=== PATIENT | male | born 2000 | race Caucasian/White ===

== ENCOUNTER 2021-05-17 21:11 | Emergency (ER) | payer BC, SELFPAY ==
[2021-05-17 21:15] VITALS: BP 138/73; PULSE 64; RESP 16; TEMP 36.7; O2SAT 100
--- NOTE | 2021-05-17 21:27 | NUR.NOTE ---
pt exam by ADILSON Mejia Note:
[2021-05-17] MEDS: cefTRIAXone 250 MG VIAL IM (21:40)
--- NOTE | 2021-05-17 21:40 | NUR.NOTE ---
Requisition for scrotal ultrasound faxed to to [facility] for 05/18/21. Patient given copy of requisition and instructed to call [phone] to make shelly. Pt wll follow up in emergency dept.Nursing Note:
--- NOTE | 2021-05-17 21:42 | W.ED.GENAD ---
Discharge Plan Disposition Patient Disposition: HOME Condition: Improving Discharge Details Clinical Impression: Epididymitis, left Primary Care Provider: Marcia,[facility] ED Provider: Jose A Hennessy Home Meds and New Rx's Prescriptions: New doxycycline hyclate 100 mg capsule 100 mg PO BID 10 Days Qty: 20 RF: 0 Discontinued Airborne Everyday Stress Away 1,000 mg-200 mg-360 mg Powder In Packet 1 packet PO DAILY RF: 0 Discharge Instructions Instructions: Epididymitis (ED) Additional Instructions: As we discussed, call tomorrow morning for an appointment time for your ultrasound. Return if you develop severe testicular pain, vomiting, or any other acute concerns. Take antibiotics as prescribed until finished. These will make you slightly sensitive to strong sun. Do not take your airborne at the same time as taking the doxycycline. May use Tylenol as needed for pain as well as scrotal elevation with tight underpants. Medical Decision Making 20-year-old male, otherwise healthy, presents with achy left testicle pain that is mild and of 1 hour duration. He had a new sexual partner last evening which she reports was normal intercourse and ejaculation. He describes the pain as 1 out of 10. His exam reveals bilateral descended and nontender testes with the exception of the left superoposteriorly testicle. Probable epididymitis. Informal bedside ultrasound was obtained which demonstrated blood flow to both testicles. GC and chlamydia obtained. I do not feel this is testicular torsion but do feel it is murray to have the patient return in the morning for a formal ultrasound. He is given ceftriaxone & I will start him on doxycycline. HPI General Mode of arrival: ambulatory. Date/Time Provider Initiated Documentation: 05/17/21 21:11. Limitations to Documentation: no limitations. Information obtained by: patient. History of Present Illness 20 year old M presents to the emergency department with the chief complaint of Mild left testicle pain, described as mild, Quality is described as dull, and is localized to the genitals and left. Patient reports no radiation. Patient started experiencing this minute(s) and it has been constant. No relieving factors improve symptom(s), No exacerbating factors reported . Patient notes denies fever/chills, loss of appetite and nausea/vomiting. Patient did receive the following treatments prior to arrival, none Related Data Home Medications Medication Instructions Recorded Confirmed doxycycline hyclate 100 mg PO BID 10 Days #20 cap 05/17/21 Previous Rx's Medication Instructions Recorded doxycycline hyclate 100 mg PO BID 10 Days #20 cap 05/17/21 Allergies Allergy/AdvReac Type Severity Reaction Status Date / Time No Known Allergies Allergy Unverified 05/17/21 21:19 General Stated Complaint: Vascular DUSTIN: 3 Review of Systems Narrative: Normal urination, ejaculation, erection. New sexual partner last night but use protection. Otherwise well. 6 systems reviewed and negative PFSH Social History Smoking risk assessment performed?: No Exam Narrative Exam Narrative: GEN: awake, alert, oriented 3. Pleasant, well groomed, interactive. HEAD: Normocephalic, atraumatic ENT: Mucous membranes moist, oropharynx unremarkable, External ear exam unremarkable EYES: PERRL, EOMI NECK: Full ROM, no DAISY, no menigismus CHEST/RESP: Nontender, clear to auscultation bilateral, no wheeze/rhonchi/rales CARDIOVASCULAR: RRR, no murmur, rub kamila. 2+ Rad pulse bilateral ABDOMEN: Soft, nontender, no mass. +Bowel sounds. Bilateral testes descended. Left testicle superoposterior tenderness. EXT: Full ROM, no edema, no rash Neuro: Grossly normal neurologic exam, conversant, interactive. Psych: Speech fluent, thoughts congruent, affect normal Course Vital Signs Vital signs: Vital Signs Temperature 36.7 C 05/17/21 21:15 Pulse 64 05/17/21 21:15 Respiratory Rate 16 05/17/21 21:15 Blood Pressure 138/73 05/17/21 21:15 Pulse Oximetry 100 05/17/21 21:15 Temperature 36.7 C 05/17/21 21:15 Temperature Source Temporal Artery Scan 05/17/21 21:15 Pulse 64 05/17/21 21:15 Respiratory Rate 16 05/17/21 21:15 Respiratory Effort 05/17/21 21:26 Blood Pressure 138/73 05/17/21 21:15 Blood Pressure Position Sitting 05/17/21 21:15 Pulse Oximetry 100 05/17/21 21:15 Oxygen Delivery Method Room Air 05/17/21 21:15 Oxygen Flow Rate 0 05/17/21 21:15 Pain Level 3 05/17/21 21:15
[2021-05-17] MEDS: Doxycycline Hyclate 100 MG, 2 CAPS/BTL PO (21:59)
[2021-05-20 07:22] LABS: Chlamydia Result Negative (Negative); GC Result Negative (Negative)
== END 2021-05-17 21:56 | disposition home or self-care (01) ==
PROVIDERS: Emergency Provider Emergency Medicine
DX: N45.1 Epididymitis (principal)
CPT/HCPCS: 87491; 87591; 99283; J0696

== ENCOUNTER 2021-05-18 10:49 | Emergency (ER) | payer BC, SELFPAY ==
[2021-05-18 11:13] VITALS: BP 116/58; PULSE 56; RESP 16; TEMP 36.6; O2SAT 99
--- NOTE | 2021-05-18 11:28 | ED.GENADUL_ITS ---
Discharge Plan Disposition Patient Disposition: HOME Condition: Stable Discharge Details Clinical Impression: Epididymitis, left Primary Care Provider: Marcia,Local ED Provider: Shine Meng Home Meds and New Rx's Prescriptions: Continued doxycycline hyclate 100 mg capsule 100 mg PO BID 10 Days Qty: 20 RF: 0 Discharge Instructions Instructions: Epididymitis (ED) Additional Instructions: Ultrasound is unremarkable. As we discussed continue your treatment from yesterday of the doxycycline. Wemt-kwa-gugitks Tylenol and/or Motrin as directed for discomfort. You may wear tighter fitting boxers or underwear for comfort. Please watch for new or worsening symptoms and return to the ER for any concerns. Otherwise follow-up with your primary care provider. Medical Decision Making 20-year-old male presents for ultrasound results. Seen in the ER last night, treated for epididymitis with doxycycline and set up for an ultrasound this morning. He is currently asymptomatic. Given his genital exam last night as well as his ultrasound just now, genital exam deferred at this time. Discussed negative ultrasound with patient. Answered all of his questions and concerns to the best of my ability. Patient is comfortable discharge at this time and has no additional questions or concerns. Standard discharge and return precautions provided. He will continue taking his doxycycline. Although he is without symptoms now, he can take [id number]-eoe-[id number] Tylenol and/or Motrin for discomfort we discussed potentially wearing more tighter fitting underwear for symptomatic control This documentation was generated using [employer] dictation system, please disregard any oddities of phrase or misspellings. Medical Records Medical records reviewed: Yes I reviewed the patient's medical records. Imaging Data Radiologic Study: Attestation: I personally reviewed and interpreted this imaging study as follows: Imaging: Ultrasound Radiologist's impression: Exam(s) US SCROTUM EXAM: US SCROTUM CLINICAL HISTORY: LT TESTICULAR PAIN TECHNIQUE: Ultrasound of the testes performed using grayscale, color, and Doppler imaging. COMPARISON: No exams were available for comparison FINDINGS: RIGHT HEMISCROTUM: The right testicle exhibits normal size and echo architecture with no evidence of intratesticular mass. Vascular flow was demonstrated within the right testicle, including arterial waveforms. The epididymis appears unremarkable. There are no epididymal head cysts. There is no ipsilateral hydrocele nor varicocele. LEFT HEMISCROTUM: The left testicle exhibits normal size and echo architecture with no evidence of intratesticular mass. Vascular flow is demonstrated within the left testicle, including arterial waveforms. The epididymis appears unremarkable. There are no epididymal head cysts. There is no ipsilateral hydrocele or varicocele. IMPRESSION: 1. No evidence of testicular mass nor testicular torsion. 2. No hydroceles evident. 3. No varicoceles evident HPI General Mode of arrival: ambulatory . Date/Time Provider Initiated Documentation: 05/18/21 11:21 . Limitations to Documentation: no limitations . Information obtained by: patient . HPI Narrative: 20-year-old male presents to the ER for results of his ultrasound. Patient seen in the ER overnight, diagnosed with left epididymitis, started on doxycycline. Patient has no significant pathological history. He currently denies any acute concerns or complaints, reports he has no abdominal pain, fever, dysuria, hematuria, pain in his testicles or scrotum. No urinary discomfort or hematuria. Related Data Home Medications Medication Instructions Recorded Confirmed doxycycline hyclate 100 mg PO BID 10 Days #20 cap 05/17/21 Previous Rx's Medication Instructions Recorded doxycycline hyclate 100 mg PO BID 10 Days #20 cap 05/17/21 Allergies Allergy/AdvReac Type Severity Reaction Status Date / Time No Known Allergies Allergy Unverified 05/18/21 08:55 General Stated Complaint: Recheck DUSTIN: 4 Review of Systems Constitutional Constitutional: Denies fever(s) Gastrointestinal Gastrointestinal: Denies abdominal pain, Denies nausea and Denies vomiting Genitourinary Genitourinary: Denies hematuria, Denies penile discharge, Denies scrotal swelling, Denies testicular mass and Denies testicular pain Musculoskeletal Musculoskeletal: Denies back pain Integumentary/Breasts Skin/Breast: Denies erythema [facility] Social History Smoking/Tobacco Use Status: Never Smoking risk assessment performed?: Yes Substance use type: does not use Do you feel safe at home: Yes Do you feel safe in your relationship?: Yes Exam Const General: cooperative, healthy appearing, comfortable and no acute distress Orientation: alert and awake [facility] Head: normal to inspection, normocephalic and atraumatic Eyes General: appearance normal, both eyes and all related structures Conjunctivae: conjunctivae normal Neck Neck: normal visual inspection, trachea midline and supple Resp Effort & Inspection: normal respiratory effort and able to speak in complete sentences Skin General skin exam: no rashes or lesions noted Neuro General: patient alert, patient awake, moves all extremities and no focal motor deficits Cognition: normal cognition Speech: speech normal Gait: normal gait Sensory Exam: no sensory deficits noted Extrem General: normal to inspection Psych Appearance: grossly normal Mental Status: mental status grossly normal Course Vital Signs Vital signs: Vital Signs Temperature 36.6 C 05/18/21 11:13 Pulse 56 L 05/18/21 11:13 Respiratory Rate 16 05/18/21 11:13 Blood Pressure 116/58 L 05/18/21 11:13 Pulse Oximetry 99 05/18/21 11:13 Temperature 36.6 C 05/18/21 11:13 Pulse 56 L 05/18/21 11:13 Respiratory Rate 16 05/18/21 11:13 Respiratory Effort Non-Labored 05/18/21 11:15 Blood Pressure 116/58 L 05/18/21 11:13 Blood Pressure Position Sitting 05/18/21 11:13 Pulse Oximetry 99 05/18/21 11:13 Oxygen Delivery Method Room Air 05/18/21 11:13 Oxygen Flow Rate 0 05/18/21 11:13 Pain Level 0 05/18/21 11:13 PAWSS Have you Been Recently Intoxicated or Drunk Within the Last 30 days?: No Have you Ever Experienced Previous Episodes of Alcohol Withdrawal?: No Have you ever Experienced Withdrawal Seizures?: No Have you ever Experienced Delirium Tremens(DT)s?: No Have you ever undergone Alcohol Rehabilitation Treatment (i.e, inpt ot outpatient treatment programs)?: No Have you ever Experienced Blackouts?: No Have you ever Combined Alcohol with other Downers within the last 90 days?: No Have you ever Combined Alcohol with any other Substance of Abuse during the last 90 days?: No Positive Blood Alcohol level on Presentation? [PCS.BAL]: No Evidence of Increased Autonomic Activity (i.e. HR>120, tremor, sweating, agitation, nausea)?: No Result: 0
== END 2021-05-18 11:31 | disposition home or self-care (01) ==
PROVIDERS: Emergency Provider Physician Assistant
DX: N45.1 Epididymitis (principal); Z71.2 Person consulting for explanation of examination or test findings